=== PATIENT | female | born 1985 | race Caucasian/White ===

== ENCOUNTER 2017-02-12 18:12 | Emergency (ER) | payer MEDICARE, MEDICAID ==
[2017-02-12 17:56] LABS: BASO % 0.5 % (0-2); EOS % 2.9 % (0-7); EOSINOPHIL ABSOLUTE COUNT 0.2 tho/cmm (0.0-0.7); HCT-HEMATOCRIT 32.5 % (34.0-49.0); HGB-HEMOGLOBIN 10.4 gm/dl (12.0-15.5); IMMATURE GRANULOCYTES PERCENT 1.3 % (0-0.3); LYMPH % 23.2 % (20-45); LYMPH ABSOLUTE COUNT 1.8 tho/cmm (0.8-4.5); MCH (MEAN CORPUSCULAR HGB) 27.7 pg (28.0-32.0); MCV (MEAN CELL VOLUME) 86.7 fl (82.0-96.0); MEAN PLATELET VOLUME 9.2 cmc (9.4-12.4); MONO % 8.1 % (0-12); MONOCYTE ABSOLUTE COUNT 0.6 tho/cmm (0.0-1.2); NEUTROPHIL ABSOLUTE COUNT 5.1 tho/cmm (1.6-8.0); NEUTROPHIL-AUTOMATED 5.1 tho/cmm (1.6-8.0); PLATELET COUNT 246 tho/cmm (150-450); RED BLOOD COUNT 3.75 mil/cmm (4.00-5.20); RED CELL DISTRIBUTION WIDTH 16.7 % (12.4-16.4); WHITE BLOOD COUNT 7.9 tho/cmm (4.0-10.0)
[~2017-02-12 18:12] MED LIST: ACTICOAT TP; ALLERGY25 M3 PO; AMBIEN5 M1 PO; B-COMPLEX WITH1 EAC1 PO; BACLOFEN PUMP; BACLOFEN10 M1 PO; BACLOFEN10 MG PO; BENADRYL25 M3 PO; BENADRYL25 MG PO; BISACODYL10 MG/SUPP; CHOLESTYRAMI239.4 G1 PO; CIPRO500 M1 PO; CIPROFLOXACIN250 MG; CITRATE OF MAG300 M1 PO; CLINDAMYCIN HC300 M2 PO; CLONAZEPAM2 M1 PO; COLACE100 M1 PO; COREG3.125 M1 PO; COUMADIN1 MG; COUMADIN2 MG; COUMADIN3 MG; COUMADIN4 MG; COUMADIN5 MG; COUMADIN5 MG PO; COUMADIN6 MG PO; DAILY MULTIPLE1 EAC2 PO; DARVOCET-N 1001 TAB PO; DIAZEPAM10 M1 PO; DITROPAN XL15 M1 PO; DITROPAN XL15 MG; DITROPAN XL15 MG PO; DULCOLAX10 MG/SUPP; DULCOLAX10 MG/SUPP RC; DURAGESIC1 PATCH .7; DURAGESIC1 PATCH .7 TOP; EFFEXOR XR; EFFEXOR XR150 MG; EFFEXOR XR150 MG PO; EFFEXOR XR75 MG; EFFEXOR100 MG PO; EFFEXOR75 MG; ENEMEEZ PLUS MIN5 ML PR; ENULOSE10 G/15 ML PO; EXPECTORANT200 M1 PO; FENTANYL1 PATCH .7 TOP; FLAGYL500 M1 PO; FLAGYL500 MG PO; FLEET ENEMA133 ML PR; GABAPENTIN300 MG PO; GLUCOPHAGE500 MG; GUAIFENESIN200 M2 PO; IMODIUM A-D2 MG; KEFLEX500 M4 PO; LAMISIL250 M1 PO; LASIX20 MG; LEVAQUIN500 MG PO; LIORESAL I500 MCG/ML; LORADAMED10 M1 PO; MACROBID 100 M100 M1 PO; MACROBID 100 M100 MG PO; MACROBID100 MG/CA1 PO; MACRODANTIN100 M1 PO; METROGEL-VAGINA70 GM VG; MILK OF MAGNESIA PO; MIRALAX17 G1 PO; MIRALAX255 GM PO; MULTIVITAMIN W/1 TA PO; MULTIVITAMIN1 TAB; MULTIVITAMIN1 TAB PO; MYCOSTATIN APL; NEURONTIN300 M1 PO; NEURONTIN300 MG; NEURONTIN300 MG PO; NORCO 5-325 TA1 EACH PO; NORCO 5/3251 TA1 PO; NORCO 5/3251 TAB PO; NORMAL SALINE FLUSH FL; NYSTATIN100000 UNI SSW; NYSTATIN60 ML PO; OXYCODONE HCL10 M2 PO; PERCOCET 10-321 EACH PO; PERCOCET 5/3251 TAB PO; POTASSIUM CHLO10 MEQ; PYRIDIUM100 M2 PO; REGLAN10 MG; REGLAN10 MG PO; REGLAN5 MG PO; SENAKOT; SENNA8.6 M1 PO; SENNA8.6 MG; SENOKOT8.6 MG; SENOKOT8.6 MG PO; SOOTHING CARE28 GM TP; STERILE WATER IR; STOP HOME MEDICATION; TERAZOL 745 GM VG; TERCONAZOLE VG; TIZANADINE HCL4 MG; TYLENOL EXTRA500 MG; TYLENOL325 M1 PO; TYLENOL325 M2 PO; TYLENOL325 MG PO; ULTRAM50 M1 PO; VALIUM10 M1 PO; VALIUM10 MG; VALIUM10 MG PO; VALIUM5 MG; VANCOMYCIN HCL125 M1 PO; VENLAFAXINE HC100 M1 PO; VITAMIN C; VITAMIN C PO; VITAMIN C500 M3 PO; WOMEN MULTIVITAMIN PO; XARELTO20 M1 PO; XARELTO20 MG PO; ZANAFLEX2 MG; ZANAFLEX4 M; ZANAFLEX4 M PO; ZANAFLEX4 M2 PO; ZANAFLEX4 MG; ZOFRAN ODT4 MG PO; ZOFRAN4 M2 PO; ZOVIRAX5 GM TP; [UNRECOGNIZED DRUG - MIXTURE] TOP; [UNRECOGNIZED DRUG - OTHER]; [UNRECOGNIZED DRUG - OTHER]
[2017-02-12 18:19] LABS: ALBUMIN 3.2 g/dl (3.5-5.0); ALKALINE PHOSPHATASE 82 U/L (33-138); ALT/SGPT 24 U/L (12-78); BILIRUBIN,TOTAL 0.3 mg/dl (0-1.5); BLOOD UREA NITROGEN 11 mg/dl (6-24); CALCIUM 8.6 mg/dl (8.5-10.5); CARBON DIOXIDE-VENOUS 25 mmol/L (22-32); CHLORIDE 107 mmol/l (96-110); CREATININE 0.41 mg/dl (0.50-1.10); GLUCOSE 87 mg/dL (70-110); SODIUM 140 mmol/L (135-145); eGFR VALUE FOR BLACK >90 mL/Min
[2017-02-12 18:20] LABS: ANION GAP 12 mmol/L (0-20); AST/SGOT 24 U/L (10-40); C-REACTIVE PROTEIN <0.3 mg/dl (0-0.9); POTASSIUM 4.1 mmol/L (3.7-5.1)
[2017-02-12 18:50] LABS: PREGNANCY-URINE NEGATIVE (NEGATIVE); URINE APPEARANCE HAZY; URINE BILIRUBIN NEGATIVE (NEG); URINE BLOOD SMALL (NEG); URINE COLOR YELLOW; URINE GLUCOSE (UA) NEGATIVE (NEG); URINE KETONE NEGATIVE (NEG); URINE LEUKOCYTE ESTERASE POSITIVE (NEG); URINE NITRITE NEGATIVE (NEG); URINE PROTEIN NEGATIVE (NEG); URINE SPECIFIC GRAVITY 1.015 (1.003-1.030)
[2017-02-12 18:59] LABS: URINE BACTERIA 4+; URINE EPITHELIAL CELLS 0-1 /[HPF] (0-10)
[2017-02-12] MEDS ORDERED: KEFLEX500 M4 PO (19:21)
== END 2017-02-12 19:56 ==
LOC: EDMED 18:12
PROVIDERS: Emergency Medicine
DX: N39.0 Urinary tract infection, site not specified (principal); Z79.899 Other long term (current) drug therapy
CPT/HCPCS: J0780; J1170; J2310; J7030; P9612

== ENCOUNTER 2017-04-08 13:21 | Emergency (ER) | payer MEDICARE, MEDICAID ==
[2017-04-08 14:34] LABS: BASO % 0.6 % (0-2); BASO ABSOLUTE COUNT 0.1 tho/cmm (0.0-0.2); EOS % 1.5 % (0-7); EOSINOPHIL ABSOLUTE COUNT 0.1 tho/cmm (0.0-0.7); HCT-HEMATOCRIT 34.9 % (34.0-49.0); HGB-HEMOGLOBIN 11.2 gm/dl (12.0-15.5); IMMATURE GRANULOCYTES ABSOLUTE 0.07 tho/cmm (0-0.03); IMMATURE GRANULOCYTES PERCENT 0.9 % (0-0.3); LYMPH % 20.9 % (20-45); LYMPH ABSOLUTE COUNT 1.7 tho/cmm (0.8-4.5); MCH (MEAN CORPUSCULAR HGB) 27.7 pg (28.0-32.0); MCHC MEAN CORPUSCULAR HGB CONC 32.1 % (32.0-36.0); MCV (MEAN CELL VOLUME) 86.4 fl (82.0-96.0); MEAN PLATELET VOLUME 9.5 cmc (9.4-12.4); MONO % 5.8 % (0-12); MONOCYTE ABSOLUTE COUNT 0.5 tho/cmm (0.0-1.2); NEUTROPHIL ABSOLUTE COUNT 5.7 tho/cmm (1.6-8.0); NEUTROPHIL-AUTOMATED 5.7 tho/cmm (1.6-8.0); NEUTROPHILS % 70.3 % (40-80); PLATELET COUNT 317 tho/cmm (150-450); RED BLOOD COUNT 4.04 mil/cmm (4.00-5.20); RED CELL DISTRIBUTION WIDTH 13.4 % (12.4-16.4)
[2017-04-08 14:48] LABS: ALBUMIN 3.7 g/dl (3.5-5.0); ALKALINE PHOSPHATASE 97 U/L (33-138); ALT/SGPT 17 U/L (12-78); ANION GAP 12 mmol/L (0-20); AST/SGOT 16 U/L (10-40); BILIRUBIN,TOTAL 0.2 mg/dl (0-1.5); BLOOD UREA NITROGEN 11 mg/dl (6-24); CALCIUM 8.7 mg/dl (8.5-10.5); CARBON DIOXIDE-VENOUS 26 mmol/L (22-32); CHLORIDE 107 mmol/l (96-110); CREATININE 0.52 mg/dl (0.50-1.10); GLUCOSE 93 mg/dL (70-110); LIPASE 165 U/L (73-393); POTASSIUM 3.8 mmol/L (3.7-5.1); SODIUM 141 mmol/L (135-145); eGFR VALUE FOR BLACK >90 mL/Min
[2017-04-08 14:48] LABS: URINE BILIRUBIN NEGATIVE (NEG); URINE BLOOD MODERATE (NEG); URINE GLUCOSE (UA) NEGATIVE (NEG); URINE KETONE NEGATIVE (NEG); URINE LEUKOCYTE ESTERASE POSITIVE (NEG); URINE NITRITE NEGATIVE (NEG); URINE PROTEIN MODERATE (NEG); URINE SPECIFIC GRAVITY 1.015 (1.003-1.030)
[2017-04-08 14:51] LABS: URINE APPEARANCE HAZY; URINE COLOR YELLOW
[2017-04-08 14:52] LABS: PREGNANCY-SERUM NEGATIVE (NEGATIVE)
[2017-04-08 15:00] LABS: URINE EPITHELIAL CELLS 0-1 /[HPF] (0-10)
== END 2017-04-08 18:44 ==
LOC: EDMED 13:21
PROVIDERS: Physician Assistant
PROC: 2W3RX1Z Immobilization of Left Lower Leg using Splint (ICD-10-PCS; principal; 2017-04-08)
DX: S82.302A Unspecified fracture of lower end of left tibia, initial encounter for closed fracture (principal); R31.9 Hematuria, unspecified; K59.00 Constipation, unspecified; I10 Essential (primary) hypertension; X58.XXXA Exposure to other specified factors, initial encounter; R11.2 Nausea with vomiting, unspecified
CPT/HCPCS: G0480; J0780; J7030; P9612

== ENCOUNTER 2017-05-08 16:22 | Observation (INO) | payer MEDICARE, MEDICAID ==
[2017-05-08] MEDS ORDERED: AMBIEN5 M1 PO (16:52)
[2017-05-08] MEDS ORDERED: GENTAMICIN SULFA OP (16:54)
[2017-05-08 18:00] LABS: URINE BILIRUBIN NEGATIVE (NEG); URINE BLOOD NEGATIVE (NEG); URINE GLUCOSE (UA) NEGATIVE (NEG); URINE KETONE NEGATIVE (NEG); URINE LEUKOCYTE ESTERASE NEGATIVE (NEG); URINE NITRITE NEGATIVE (NEG); URINE PROTEIN NEGATIVE (NEG); URINE SPECIFIC GRAVITY 1.005 (1.003-1.030)
[2017-05-08 18:03] LABS: URINE APPEARANCE CLEAR; URINE COLOR YELLOW
[2017-05-08 18:07] LABS: BASO % 0.4 % (0-2); EOS % 1.5 % (0-7); EOSINOPHIL ABSOLUTE COUNT 0.2 tho/cmm (0.0-0.7); HCT-HEMATOCRIT 33.1 % (34.0-49.0); HGB-HEMOGLOBIN 10.6 gm/dl (12.0-15.5); LYMPH % 17.5 % (20-45); LYMPH ABSOLUTE COUNT 1.7 tho/cmm (0.8-4.5); MCH (MEAN CORPUSCULAR HGB) 26.5 pg (28.0-32.0); MCV (MEAN CELL VOLUME) 82.8 fl (82.0-96.0); MEAN PLATELET VOLUME 9.7 cmc (9.4-12.4); MONO % 6.5 % (0-12); MONOCYTE ABSOLUTE COUNT 0.7 tho/cmm (0.0-1.2); NEUTROPHIL ABSOLUTE COUNT 7.3 tho/cmm (1.6-8.0); NEUTROPHIL-AUTOMATED 7.3 tho/cmm (1.6-8.0); NEUTROPHILS % 73.1 % (40-80); PLATELET COUNT 325 tho/cmm (150-450); RED CELL DISTRIBUTION WIDTH 13.5 % (12.4-16.4)
[2017-05-08 18:08] LABS: ANION GAP 13 mmol/L (0-20); BLOOD UREA NITROGEN 11 mg/dl (6-24); CALCIUM 8.5 mg/dl (8.5-10.5); CARBON DIOXIDE-VENOUS 23 mmol/L (22-32); CHLORIDE 105 mmol/l (96-110); CREATININE 0.51 mg/dl (0.50-1.10); GLUCOSE 78 mg/dL (70-110); POTASSIUM 4.7 mmol/L (3.7-5.1); SODIUM 136 mmol/L (135-145); eGFR VALUE FOR BLACK >90 mL/Min
[2017-05-10] MEDS ORDERED: ENULOSE10 GM/151 PO (10:59)
== END 2017-05-10 14:10 ==
LOC: EDMED 16:22 → 5WD 21:51
PROVIDERS: Emergency Medicine; ADMIT Hospitalist
DX: K59.00 Constipation, unspecified (principal); G82.20 Paraplegia, unspecified; D68.51 Activated protein C resistance; F32.9 Major depressive disorder, single episode, unspecified; E28.2 Polycystic ovarian syndrome; N31.9 Neuromuscular dysfunction of bladder, unspecified; Z79.01 Long term (current) use of anticoagulants; Z79.899 Other long term (current) drug therapy; Z88.0 Allergy status to penicillin; Z88.1 Allergy status to other antibiotic agents; Z88.5 Allergy status to narcotic agent; Z88.8 Allergy status to other drugs, medicaments and biological substances; Z91.040 Latex allergy status; Z86.718 Personal history of other venous thrombosis and embolism; Z86.711 Personal history of pulmonary embolism; Z90.49 Acquired absence of other specified parts of digestive tract; Z90.89 Acquired absence of other organs; Z98.1 Arthrodesis status; Z98.890 Other specified postprocedural states
CPT/HCPCS: G0378; J7030; P9612; Q9967